=== PATIENT | male | born 1990 | race Caucasian/White ===

== ENCOUNTER 2020-07-19 14:15 | Emergency (ER) | payer OTHER ==
[2020-07-19 14:30] VITALS: BMI 28.3
[2020-07-19] MEDS ORDERED: LACTATED RINGERS SOLUTION 1000 ML INFUS.BAG IV ONE (15:51)
[2020-07-19] MEDS ORDERED: KETOROLAC TROMETHAMINE 15 MG/ML VIAL IVPUSH ONE (15:51)
[2020-07-19] MEDS ORDERED: KETOROLAC TROMETHAMINE 15 MG/ML VIAL ONE (15:54)
[2020-07-19] MEDS ORDERED: LIDOCAINE 5% TOPICAL PATCH TP ONE (16:25)
[2020-07-19] MEDS ORDERED: LIDOCAINE 5% TOPICAL PATCH ONE (16:32)
[2020-07-19 16:47] LABS: CHLORIDE 103 mmol/L (98-107); SODIUM 130 mmol/L (136-145)
[2020-07-19 16:49] LABS: ALBUMIN 3.8 g/dl (3.4-5.0); BLOOD UREA NITROGEN 22.3 mg/dL (7-18); CALCIUM 9.2 mg/dL (8.5-10.1); CO2 29 mmol/L (21-32); GLUCOSE,RANDOM 93 mg/dL (74-106)
[2020-07-19 16:52] LABS: CREATININE 1.1 mg/dL (0.55-1.3)
[2020-07-19 16:54] LABS: TOT PROT 8.7 g/dl (6.4-8.2)
[2020-07-19 16:55] LABS: ALK PHOS 114 U/L (45-117)
[2020-07-19] MEDS ORDERED: CYCLOBENZAPRINE HCL 10 MG TABLET (FP) PO ONE (17:02)
[2020-07-19 17:09] LABS: ANION GAP -3 MMOL/L (8-16); POTASSIUM > 10.0 mmol/L (3.5-5.1); SGOT/AST 110 U/L (15-37)
[2020-07-19 17:11] LABS: BILIRUBIN,TOTAL < 0.1 mg/dL (0.2-1)
[2020-07-19] MEDS ORDERED: CYCLOBENZAPRINE HCL 10 MG TABLET (FP) ONE (17:16)
[2020-07-19 18:15] LABS: POTASSIUM 4.3 mmol/L (3.5-5.1)
[2020-07-19 18:17] LABS: BLOOD UREA NITROGEN 21.7 mg/dL (7-18); CALCIUM 8.9 mg/dL (8.5-10.1)
[2020-07-19 18:35] LABS: BASO % 0.1 % (0-2.0); EOS % 2.4 % (0-4.5); HEMATOCRIT 43.7 % (35.4-49); HEMOGLOBIN 14.4 GM/dL (11.7-16.9); LYMPH % 26.9 % (8-40); MCH 30.4 pg (25.7-33.7); MEAN PLT VOLUME 11.1 fl (7.5-11.1); NEUT % 62.6 % (42.8-82.8); PLATELET COUNT 199 K/MM3 (134-434); RBC 4.75 M/mm3 (4.00-5.60); RDW 12.6 % (11.9-15.9); WHITE BLOOD COUNT 10.4 K/mm3 (4.0-10.0)
[2020-07-19 18:45] VITALS: BP 115/69; PULSE 63; TEMP 98.2
[2020-07-20] MEDS ORDERED: LIDOCAINE PATCH REMOVAL MC SCH (04:30)
== END 2020-07-19 18:52 | disposition home or self-care (01) ==
LOC: JER 14:15
PROC: 3E0333Z Introduction of Anti-inflammatory into Peripheral Vein, Percutaneous Approach (ICD-10-PCS; principal; 2020-07-19)
DX: M54.5 Low back pain (principal)
CPT/HCPCS: 36415; 72100-TC-FY; 80048; 80053; 85025; 99285-25

== ENCOUNTER 2020-12-01 22:58 | Emergency (ER) | payer OTHER ==
[2020-12-01 23:05] VITALS: BP 114/74; PULSE 65; TEMP 98.6; BMI 27.2
[2020-12-01] MEDS ORDERED: MAG HYDROX/AL HYDROX/SIMETH 30 ML UNIT-DOSE CUP PO ONE (23:54)
[2020-12-01] MEDS ORDERED: ONDANSETRON 4 MG TABLET PO ONE (23:54)
[2020-12-01] MEDS ORDERED: ACETAMINOPHEN 325 MG TABLET (FP) PO ONE (23:59)
[2020-12-01] MEDS ORDERED: FAMOTIDINE 20 MG/50 ML IVPB 20 MG/50 ML MG IVPB ONE (23:59)
[2020-12-02] MEDS ORDERED: ACETAMINOPHEN 325 MG TABLET (FP) ONE (00:09)
[2020-12-02] MEDS ORDERED: MAG HYDROX/AL HYDROX/SIMETH 30 ML UNIT-DOSE CUP ONE (00:10)
[2020-12-02] MEDS ORDERED: ONDANSETRON 4 MG/2 ML VIAL ONE (00:10)
[2020-12-02] MEDS ORDERED: FAMOTIDINE 20 MG/50 ML IVPB 20 MG/50 ML MG IVPB ONE (00:10)
[2020-12-02 01:00] LABS: CHLORIDE 105 mmol/L (98-107); SODIUM 138 mmol/L (136-145)
[2020-12-02 01:02] LABS: ALBUMIN 3.7 g/dl (3.4-5.0); BLOOD UREA NITROGEN 12.6 mg/dL (7-18); CALCIUM 8.1 mg/dL (8.5-10.1)
[2020-12-02 01:03] LABS: ANION GAP 8 MMOL/L (8-16); CO2 25 mmol/L (21-32); GLUCOSE,RANDOM 92 mg/dL (74-106); LIPASE 207 U/L (73-393)
[2020-12-02 01:06] LABS: CREATININE 1.2 mg/dL (0.55-1.3); SGOT/AST 43 U/L (15-37); SGPT/ALT 34 U/L (13-61)
[2020-12-02 01:07] LABS: BILIRUBIN,TOTAL 0.4 mg/dL (0.2-1); TOT PROT 7.2 g/dl (6.4-8.2)
[2020-12-02 01:08] LABS: ALK PHOS 97 U/L (45-117)
[2020-12-02 01:55] LABS: BASO % 0.4 % (0-2.0); EOS % 0.3 % (0-4.5); HEMATOCRIT 40.9 % (35.4-49); HEMOGLOBIN 13.7 GM/dL (11.7-16.9); LYMPH % 23.8 % (8-40); MCH 29.7 pg (25.7-33.7); MCHC 33.4 g/dl (32.0-35.9); MEAN CELL VOLUME 88.8 fl (80-96); MEAN PLT VOLUME 9.8 fl (7.5-11.1); MONO % 13.2 % (3.8-10.2); NEUT % 62.3 % (42.8-82.8); PLATELET COUNT 143 10^3/uL (134-434); RBC 4.61 M/mm3 (4.00-5.60); RDW 12.8 % (11.9-15.9); WHITE BLOOD COUNT 6.6 K/mm3 (4.0-10.0)
[2020-12-02] MEDS ORDERED: SUCRALFATE 1 GM TABLET (FP) PO ONE (02:24)
[2020-12-02] MEDS ORDERED: SUCRALFATE 1 GM TABLET (FP) ONE (02:31)
== END 2020-12-02 05:06 | disposition home or self-care (01) ==
LOC: JER 22:58
PROC: 3E033GC Introduction of Other Therapeutic Substance into Peripheral Vein, Percutaneous Approach (ICD-10-PCS; principal; 2020-12-01)
DX: R10.10 Upper abdominal pain, unspecified (principal)
CPT/HCPCS: 36415; 71045-TC-FY; 74177-TC; 76705-TC; 80053; 82550; 82553; 83690; 84484; 85025; 93005; 93010; 99285-25